=== PATIENT | male | born 1950 | race Hispanic/Latino ===

== ENCOUNTER 2024-06-08 10:01 | Outpatient (CLI) | payer MEDICARE | END 2024-06-08 10:02 | disposition home or self-care (01) | LOC: CSHRAD 10:01 | PROVIDERS: ATTEND Surgery | DX: C18.9 Malignant neoplasm of colon, unspecified (principal); Z93.3 Colostomy status | CPT/HCPCS: 74280 ==

== ENCOUNTER 2024-10-16 10:43 | Outpatient (CLI) | payer MEDICARE, MEDICAID ==
[~2024-10-16 10:43] MED LIST: Iopamidol 300 61% 100 ML VIAL FS ONE; Magnevist 469MG/ML 20 ML VIAL ONE
== END 2024-10-16 10:44 | disposition home or self-care (01) ==
LOC: CSHCT 10:43
PROVIDERS: ATTEND Internal Medicine Hematology & Oncology
DX: C20 Malignant neoplasm of rectum (principal); C18.7 Malignant neoplasm of sigmoid colon; D50.0 Iron deficiency anemia secondary to blood loss (chronic); Z93.3 Colostomy status; K59.00 Constipation, unspecified; M62.89 Other specified disorders of muscle
CPT/HCPCS: 71260; 72197; 74160

== ENCOUNTER 2025-08-04 04:14 | Outpatient (CLI) | payer MEDICARE, MEDICAID ==
[2025-08-04] MEDS ORDERED: Iopamidol 370 76% 100 ML VIAL ONE (09:45)
== END 2025-08-04 04:15 | disposition home or self-care (01) ==
LOC: CSHCT 04:14
PROVIDERS: ATTEND Internal Medicine Hematology & Oncology
DX: C18.7 Malignant neoplasm of sigmoid colon (principal); D50.0 Iron deficiency anemia secondary to blood loss (chronic); M79.89 Other specified soft tissue disorders; N32.89 Other specified disorders of bladder; K62.89 Other specified diseases of anus and rectum; Z93.3 Colostomy status
CPT/HCPCS: 71260; 72197; 74177; Q9967